=== PATIENT | female | born 1955 | race Caucasian/White ===

== ENCOUNTER 2017-11-05 08:15 | Inpatient (IN) | payer OTHER ==
[2017-11-04 15:43] VITALS: BP 126/83
[2017-11-04 16:25] LABS: BASOPHILS # (AUTO) 0.07 x10^3/uL (0-0.1); BASOPHILS % (AUTO) 1 % (0-1); EOSINOPHILS # (AUTO) 0.11 x10^3/uL (0-0.4); EOSINOPHILS % (AUTO) 1 % (1-7); LYMPHOCYTES # (AUTO) 3.02 x10^3/uL (1-3.4); LYMPHOCYTES % (AUTO) 35 % (22-44); MD NO; MEAN CORPUSCULAR HEMOGLOBIN 34.3 pg (27.0-34.8); MEAN CORPUSCULAR HGB CONC 34.1 g/dL (32.4-35.8); MEAN CORPUSCULAR VOLUME 100.6 fL (80-100); MEAN PLATELET VOLUME 7.8 fL (7.4-10.4); MONOCYTES % (AUTO) 7 % (2-9); NEUTROPHILS # (AUTO) 4.93 x10^3/uL (1.8-6.8); NEUTROPHILS % (AUTO) 57 % (42-75); PLATELET COUNT 245 x10^3/uL (130-400); RED BLOOD COUNT 4.09 x10^6/uL (3.82-5.3); RED CELL DISTRIBUTION WIDTH 13.2 % (9.6-15.2)
[2017-11-04 16:35] LABS: ALBUMIN 3.9 g/dL (3.4-5.0); ANION GAP 8 mmol/L (5-15); CALCIUM 9.8 mg/dL (8.5-10.1); CHLORIDE 107 mmol/L (98-107)
[2017-11-04 16:40] LABS: ALANINE AMINOTRANSFERASE 22 U/L (12-78); ALKALINE PHOSPHATASE 96 U/L (45-117); BILIRUBIN,TOTAL 0.4 mg/dL (0.2-1.0); CREATININE 0.82 mg/dL (0.55-1.02); TOTAL PROTEIN 8.2 g/dL (6.4-8.2)
[~2017-11-05] VITALS: Ht 167.6 cm; Wt 60.5 kg
[~2017-11-05 08:15] MED LIST: BUPIVACAINE/PF-EPI 0.5% 1:200K ONE; NONE PER PT
[2017-11-05] MEDS: LACTATED RINGERS 1,000 ML IV SCH (09:54)
[2017-11-05] MEDS ORDERED: PROPOFOL 10 MG/ML, 20ML ONE (10:03)
[2017-11-05] MEDS ORDERED: MIDAZOLAM 1 MG/ML, 2ML ONE (10:03)
[2017-11-05] MEDS ORDERED: FENTANYL PF 250 MCG/5ML ONE (10:03)
[2017-11-05] MEDS ORDERED: WATER-INJECTION,STERILE 10 ML IV ONE (10:04)
[2017-11-05] MEDS ORDERED: ROCURONIUM 10MG/ML,5ML ONE ×2 (10:04→12:30)
[2017-11-05] MEDS ORDERED: CEFAZOLIN 1,000 MG ONE ×2 (10:04)
[2017-11-05] MEDS ORDERED: GLYCOPYRROLATE 0.4 MG/2 ML, 2ML ONE (10:06)
[2017-11-05] MEDS ORDERED: DEXAMETHASONE 4 MG/ML, 1ML ONE ×2 (10:06)
[2017-11-05] MEDS ORDERED: NEOSTIGMINE 1 MG/ML, 10ML ONE (10:06)
[2017-11-05] MEDS ORDERED: ONDANSETRON 2MG/ML, 2ML ONE ×2 (10:07)
[2017-11-05] MEDS ORDERED: THROMBIN 20,000 UNIT VIAL TP ONE (11:04)
[2017-11-05] MEDS ORDERED: MICROFIBRILLAR COLLAGEN 70X35X1 DRESSING ONE (11:04)
[2017-11-05] MEDS ORDERED: MICROFIBRILLAR COLLAGEN 1 GM TP ONE (11:04)
[2017-11-05] MEDS ORDERED: LABETALOL 5MG/ML, 20ML IV PRN (11:30)
[2017-11-05] MEDS ORDERED: ALBUTEROL SULFATE 2.5 MG/3 ML NPPB PRN (11:30)
[2017-11-05] MEDS ORDERED: MEPERIDINE/PF 25MG/0.5ML IVPush PRN (11:30)
[2017-11-05] MEDS ORDERED: PROMETHAZINE 25 MG/ML, 1ML IM PRN ×2 (11:30)
[2017-11-05] MEDS ORDERED: hydrALAzine 20 MG/ML, 1ML IV PRN (11:30)
[2017-11-05] MEDS ORDERED: ONDANSETRON ODT 8 MG PO PRN (11:30)
[2017-11-05] MEDS ORDERED: MORPHINE SULFATE 4 MG/ML, 1ML IVPush PRN (11:30)
[2017-11-05] MEDS ORDERED: ONDANSETRON 2MG/ML, 2ML IV PRN (11:30)
[2017-11-05] MEDS ORDERED: ACETAMINOPHEN 325 MG TABLET PO PRN (11:30)
[2017-11-05] MEDS ORDERED: PROMETHAZINE 25 MG/ML, 1ML IV PRN (11:30)
[2017-11-05] MEDS ORDERED: OXYcodone 5 MG/5 ML ORAL.SOL UDC PO PRN (11:30)
[2017-11-05] MEDS ORDERED: FENTANYL PF 100 MCG/2ML ONE ×3 (11:36→13:52)
[2017-11-05] MEDS ORDERED: GLYCOPYRROLATE 0.2MG/1ML, 5ML ONE (13:19)
[2017-11-05] MEDS ORDERED: LACTATED RINGERS 1,000 ML IV SCH (13:32)
[2017-11-05] MEDS ORDERED: OXYcodone 5 MG/5 ML ORAL.SOL UDC ONE (13:52)
[2017-11-05] MEDS ORDERED: HYDROmorphone 2 MG/ML, 1ML ONE (13:52)
[2017-11-05] MEDS: FENTANYL PF 100 MCG/2ML IV PRN ×2 (13:55→14:22)
[2017-11-05] MEDS ORDERED: ENALAPRILAT 1.25 MG/ML, 2ML IVPush PRN (14:00)
[2017-11-05] MEDS ORDERED: LORazepam 2 MG/ML, 1ML IVPush PRN (14:00)
[2017-11-05] MEDS ORDERED: hydrALAzine 20 MG/ML, 1ML IVPush PRN (14:00)
[2017-11-05] MEDS: HYDROmorphone 1 MG/ML, 1ML IV PRN ×4 (14:00→14:36)
[2017-11-05] MEDS ORDERED: DIPHENHYDRAMINE 50 MG/ML, 1ML IVPush PRN (14:00)
[2017-11-05] MEDS: FAMOTIDINE 20 MG/2 ML IVPush SCH (15:52)
[2017-11-05] MEDS: morphine SULFATE 10 MG/ML, 1ML IVPush PRN ×5 (16:15→22:35)
[2017-11-05] MEDS: ONDANSETRON 2MG/ML, 2ML IVPush PRN ×2 (16:55→23:10)
[2017-11-05 19:34] VITALS: BP 138/91
[2017-11-05 23:59] VITALS: BP 120/78
[2017-11-06] MEDS: morphine SULFATE 10 MG/ML, 1ML IVPush PRN ×2 (01:56→08:13)
[2017-11-06] MEDS: FAMOTIDINE 20 MG/2 ML IVPush SCH ×2 (03:06→14:37)
[2017-11-06] MEDS: LACTATED RINGERS 1,000 ML IV SCH (03:16)
[2017-11-06 04:00] VITALS: BP 117/74
[2017-11-06 04:45] LABS: BASOPHILS # (AUTO) 0.03 x10^3/uL (0-0.1); BASOPHILS % (AUTO) 0 % (0-1); EOSINOPHILS # (AUTO) 0.05 x10^3/uL (0-0.4); EOSINOPHILS % (AUTO) 1 % (1-7); LYMPHOCYTES # (AUTO) 1.23 x10^3/uL (1-3.4); LYMPHOCYTES % (AUTO) 13 % (22-44); MD NO; MEAN CORPUSCULAR HEMOGLOBIN 34.4 pg (27.0-34.8); MEAN CORPUSCULAR VOLUME 101.1 fL (80-100); MEAN PLATELET VOLUME 8.1 fL (7.4-10.4); MONOCYTES # (AUTO) 0.68 x10^3/uL (0.2-0.8); MONOCYTES % (AUTO) 7 % (2-9); NEUTROPHILS # (AUTO) 7.43 x10^3/uL (1.8-6.8); NEUTROPHILS % (AUTO) 79 % (42-75); PLATELET COUNT 223 x10^3/uL (130-400); RED BLOOD COUNT 3.46 x10^6/uL (3.82-5.3); RED CELL DISTRIBUTION WIDTH 12.7 % (9.6-15.2)
[2017-11-06 04:51] LABS: ANION GAP 7 mmol/L (5-15); CALCIUM 8.8 mg/dL (8.5-10.1); CHLORIDE 106 mmol/L (98-107)
[2017-11-06 04:54] LABS: CREATININE 0.72 mg/dL (0.55-1.02)
[2017-11-06] MEDS: ONDANSETRON 2MG/ML, 2ML IVPush PRN ×3 (05:58→19:48)
[2017-11-06 07:40] VITALS: BP 122/77
[2017-11-06 13:42] VITALS: BP 116/76
[2017-11-06] MEDS ORDERED: ONDANSETRON ODT 4 MG ONE (14:33)
[2017-11-06] MEDS: HYDROcodone/APAP 5/325 TABLET PO PRN ×3 (14:36→19:48)
[2017-11-06] MEDS: ENOXAPARIN 40 MG/0.4 ML SQ SCH (14:37)
[2017-11-06 20:21] VITALS: BP 120/73
[2017-11-07] MEDS: HYDROcodone/APAP 5/325 TABLET PO PRN ×3 (00:01→10:48)
[2017-11-07 00:20] VITALS: BP 106/67
[2017-11-07] MEDS: FAMOTIDINE 20 MG/2 ML IVPush SCH (03:07)
[2017-11-07 04:01] VITALS: BP 119/76
[2017-11-07 06:46] VITALS: BP 123/81
[2017-11-07] MEDS: ENOXAPARIN 40 MG/0.4 ML SQ SCH (09:36)
[2017-11-07] MEDS: ONDANSETRON 2MG/ML, 2ML IVPush PRN (10:47)
[2017-11-07 12:21] VITALS: BP 119/71
[2017-11-07 13:49] VITALS: BP 111/72
[2017-11-07] MEDS ORDERED: HYDR-3240 PO (14:18)
[2017-11-07] MEDS ORDERED: ONDA4TAB7 PO (14:18)
== END 2017-11-07 15:14 | disposition home or self-care (01) | DRG 165 ==
LOC: ORIP 08:15 → 4NOR 15:10 → DCLOUNGE 11-07 15:02
PROVIDERS: ADMIT Thoracic Surgery (Cardiothoracic Vascular Surgery); ATTEND Thoracic Surgery (Cardiothoracic Vascular Surgery)
PROC: 0BBC4ZZ Excision of Right Upper Lung Lobe, Percutaneous Endoscopic Approach (ICD-10-PCS; principal; 2017-11-05 11:30)
PROC: 07B74ZZ Excision of Thorax Lymphatic, Percutaneous Endoscopic Approach (ICD-10-PCS; 2017-11-05 11:30)
DX: C34.11 Malignant neoplasm of upper lobe, right bronchus or lung (principal); Z87.891 Personal history of nicotine dependence
CPT/HCPCS: 36415; J3490; S0028; 71045; 80048; 80053; 85025; 86850; 86900; 86923; 88305; 88309; 88331; 93005; C1729; G0378; J0690; J1100; J1170; J1650; J2250; J2405; J2704; J2710; J3010; J2270; J7120

== ENCOUNTER 2018-05-20 19:48 | Inpatient (IN) | payer OTHER ==
[~2018-05-20] VITALS: Ht 167.6 cm; Wt 63.3 kg
[~2018-05-20 19:48] MED LIST changes: -BUPIVACAINE/PF-EPI 0.5% 1:200K ONE; +HYDR-3240 PO; +ONDA4TAB7 PO
--- NOTE | 2018-05-20 20:00 | NUR ---
PT PLACED ON HEART MONITOR, BP CUFF, PULSE OX. VSS AT THIS TIME. PT A/O X 4, PT REPORTS SLIGHTLY SLURRED SPEECH AND TROUBLE WITH WORD FINDING. PT DENIES ANY PAIN, CONTINUES TO HAVE RUE AND RLE WEAKNESS. LESLIE, PT DENIES VOGEL OR VISION CHANGES. PT ABLE TO TRANSFER FROM AMBULANCE [facility] TO ED [facility] BY STANDING. CALL LIGHT WITHIN REACH, WARM BLANKET PROVIDED.
--- NOTE | 2018-05-20 21:47 | NUR ---
CONTINUE TO AWAIT ORDERS. PT RESTING, NAD. VSS/UPDATED IN COMPUTER.
--- NOTE | 2018-05-20 21:59 | NUR ---
MRI SCREENING FORM COMPLETED, FAXED TO MRI.
[2018-05-20] MEDS ORDERED: SODIUM CHLORIDE FLUSH 10ML SYR IVF ONE (22:00)
--- NOTE | 2018-05-20 22:08 | NUR ---
[facility] IN TO SEE PT.
[2018-05-20] MEDS ORDERED: SODIUM CHLORIDE 0.9% 1,000 ML IV SCH (22:10)
[2018-05-20] MEDS ORDERED: ONDANSETRON 2MG/ML, 2ML IVPush PRN (22:30)
[2018-05-20] MEDS ORDERED: ACETAMINOPHEN 325 MG TABLET PO PRN (22:30)
[2018-05-20] MEDS ORDERED: POLYETHYLENE GLYCOL 17 GM PACKET PO PRN (22:30)
[2018-05-20] MEDS ORDERED: hydrALAzine 20 MG/ML, 1ML IVPush PRN (22:30)
[2018-05-21 00:13] VITALS: BP 150/75
[2018-05-21] MEDS: LEVETIRACETAM 500 MG in SODIUM CHLORIDE 0.9% 100 ML IV SCH ×2 (00:46→12:29)
[2018-05-21] MEDS: DEXAMETHASONE 4 MG/ML, 1ML IV SCH ×4 (03:15→21:13)
[2018-05-21 03:18] VITALS: BP 124/80
[2018-05-21 06:36] VITALS: BP 121/80
[2018-05-21 06:54] LABS: BASOPHILS # (AUTO) 0.02 x10^3/uL (0-0.1); BASOPHILS % (AUTO) 0 % (0-1); EOSINOPHILS % (AUTO) 0 % (1-7); LYMPHOCYTES # (AUTO) 1.02 x10^3/uL (1-3.4); LYMPHOCYTES % (AUTO) 12 % (22-44); MD NO; MEAN CORPUSCULAR HEMOGLOBIN 33.8 pg (27.0-34.8); MEAN CORPUSCULAR HGB CONC 33.9 g/dL (32.4-35.8); MEAN CORPUSCULAR VOLUME 99.7 fL (80-100); MEAN PLATELET VOLUME 8.6 fL (7.4-10.4); MONOCYTES # (AUTO) 0.02 x10^3/uL (0.2-0.8); MONOCYTES % (AUTO) 0 % (2-9); NEUTROPHILS # (AUTO) 7.11 x10^3/uL (1.8-6.8); NEUTROPHILS % (AUTO) 87 % (42-75); PLATELET COUNT 289 x10^3/uL (130-400); RED BLOOD COUNT 4.02 x10^6/uL (3.82-5.3); RED CELL DISTRIBUTION WIDTH 13.2 % (9.6-15.2)
[2018-05-21 07:00] LABS: ALANINE AMINOTRANSFERASE 22 U/L (12-78); ALBUMIN 3.4 g/dL (3.4-5.0); ANION GAP 11 mmol/L (5-15); CALCIUM 9.4 mg/dL (8.5-10.1); CHLORIDE 111 mmol/L (98-107); CREATININE 0.47 mg/dL (0.55-1.02)
[2018-05-21 07:02] LABS: ALKALINE PHOSPHATASE 96 U/L (45-117); BILIRUBIN,TOTAL 0.4 mg/dL (0.2-1.0)
[2018-05-21] MEDS ORDERED: LEVETIRACETAM 100 MG/ML, 5ML IV SCH (09:00)
[2018-05-21] MEDS ORDERED: GADOBUTROL 7.5 MMOL/7.5 ML PFS ONE (14:04)
[2018-05-21] MEDS ORDERED: OMNIPAQUE 350 MG/ML, 100ML BOTTLE ONE (14:50)
[2018-05-21 16:01] VITALS: BP 103/80
[2018-05-21 20:21] VITALS: BP 120/77
[2018-05-21] MEDS ORDERED: SODIUM CHLORIDE 0.9% 1,000 ML IV SCH (22:10)
[2018-05-22 01:03] VITALS: BP 111/74
[2018-05-22] MEDS: LEVETIRACETAM 500 MG in SODIUM CHLORIDE 0.9% 100 ML IV SCH ×2 (01:27→13:08)
[2018-05-22] MEDS: DEXAMETHASONE 4 MG/ML, 1ML IV SCH ×4 (03:10→20:54)
[2018-05-22 05:05] LABS: BASOPHILS # (AUTO) 0.06 x10^3/uL (0-0.1); BASOPHILS % (AUTO) 1 % (0-1); EOSINOPHILS % (AUTO) 0 % (1-7); LYMPHOCYTES # (AUTO) 1.06 x10^3/uL (1-3.4); LYMPHOCYTES % (AUTO) 10 % (22-44); MD NO; MEAN CORPUSCULAR HEMOGLOBIN 34.7 pg (27.0-34.8); MEAN CORPUSCULAR HGB CONC 34.1 g/dL (32.4-35.8); MEAN CORPUSCULAR VOLUME 101.8 fL (80-100); MEAN PLATELET VOLUME 8.9 fL (7.4-10.4); MONOCYTES # (AUTO) 0.44 x10^3/uL (0.2-0.8); MONOCYTES % (AUTO) 4 % (2-9); NEUTROPHILS # (AUTO) 9.41 x10^3/uL (1.8-6.8); NEUTROPHILS % (AUTO) 86 % (42-75); PLATELET COUNT 264 x10^3/uL (130-400); RED BLOOD COUNT 3.53 x10^6/uL (3.82-5.3); RED CELL DISTRIBUTION WIDTH 13.4 % (9.6-15.2)
[2018-05-22 05:14] LABS: ALBUMIN 3.1 g/dL (3.4-5.0); ANION GAP 9 mmol/L (5-15); CALCIUM 8.9 mg/dL (8.5-10.1); CHLORIDE 117 mmol/L (98-107)
[2018-05-22 05:18] LABS: ALANINE AMINOTRANSFERASE 23 U/L (12-78); ALKALINE PHOSPHATASE 80 U/L (45-117); BILIRUBIN,TOTAL 0.4 mg/dL (0.2-1.0); CREATININE 0.59 mg/dL (0.55-1.02); TOTAL PROTEIN 6.1 g/dL (6.4-8.2)
[2018-05-22] MEDS ORDERED: SODIUM CHLORIDE 0.45% 1,000 ML IV SCH (07:00)
[2018-05-22 07:10] VITALS: BP 125/70
[2018-05-22 08:28] VITALS: BP 120/80
[2018-05-22 09:10] LABS: INTERNATIONAL NORMALIZED RATIO 0.96 (0.93-1.1); PROTHROMBIN TIME 10.1 Seconds (9.6-11.5)
[2018-05-22 13:20] VITALS: BP 114/75
[2018-05-22 13:34] LABS: ANION GAP 9 mmol/L (5-15); CALCIUM 9.1 mg/dL (8.5-10.1); CHLORIDE 116 mmol/L (98-107); CREATININE 0.67 mg/dL (0.55-1.02)
[2018-05-22] MEDS ORDERED: POTASSIUM CHLORIDE 20 MEQ TAB.ER.PRT PO ONE (14:00)
[2018-05-22] MEDS: DEXTROSE 5% 1,000 ML IV SCH (15:04)
[2018-05-22 19:45] VITALS: BP 122/81
[2018-05-22 21:02] LABS: ANION GAP 6 mmol/L (5-15); CHLORIDE 119 mmol/L (98-107); CREATININE 0.73 mg/dL (0.55-1.02)
[2018-05-23] MEDS: LEVETIRACETAM 500 MG in SODIUM CHLORIDE 0.9% 100 ML IV SCH ×2 (00:57→12:03)
[2018-05-23 02:11] VITALS: BP 112/82
[2018-05-23] MEDS: DEXAMETHASONE 4 MG/ML, 1ML IV SCH ×4 (02:55→20:02)
[2018-05-23 04:34] LABS: BASOPHILS # (AUTO) 0.03 x10^3/uL (0-0.1); BASOPHILS % (AUTO) 0 % (0-1); EOSINOPHILS % (AUTO) 0 % (1-7); LYMPHOCYTES # (AUTO) 1.12 x10^3/uL (1-3.4); LYMPHOCYTES % (AUTO) 12 % (22-44); MD NO; MEAN CORPUSCULAR HEMOGLOBIN 33.8 pg (27.0-34.8); MEAN CORPUSCULAR HGB CONC 33.5 g/dL (32.4-35.8); MEAN CORPUSCULAR VOLUME 100.9 fL (80-100); MONOCYTES % (AUTO) 3 % (2-9); NEUTROPHILS # (AUTO) 7.65 x10^3/uL (1.8-6.8); NEUTROPHILS % (AUTO) 84 % (42-75); PLATELET COUNT 276 x10^3/uL (130-400); RED BLOOD COUNT 3.71 x10^6/uL (3.82-5.3)
[2018-05-23 04:39] LABS: INTERNATIONAL NORMALIZED RATIO 0.95 (0.93-1.1)
[2018-05-23 04:41] LABS: ALBUMIN 3.3 g/dL (3.4-5.0); ANION GAP 7 mmol/L (5-15); CALCIUM 8.9 mg/dL (8.5-10.1); CHLORIDE 115 mmol/L (98-107)
[2018-05-23 04:44] LABS: ALANINE AMINOTRANSFERASE 22 U/L (12-78); ALKALINE PHOSPHATASE 79 U/L (45-117); BILIRUBIN,TOTAL 0.3 mg/dL (0.2-1.0); CREATININE 0.64 mg/dL (0.55-1.02); TOTAL PROTEIN 6.5 g/dL (6.4-8.2)
[2018-05-23] MEDS ORDERED: MIDAZOLAM 1 MG/ML, 2ML ONE (07:46)
[2018-05-23] MEDS ORDERED: FENTANYL PF 250 MCG/5ML ONE ×2 (07:47→10:34)
[2018-05-23] MEDS ORDERED: NEOSTIGMINE 1 MG/ML, 10ML ONE (07:48)
[2018-05-23] MEDS ORDERED: SUCCINYLCHOLINE 20 MG/ML, 10ML ONE (07:48)
[2018-05-23] MEDS ORDERED: LIDOCAINE-MPF 2% ,5ML ONE ×2 (07:48)
[2018-05-23] MEDS ORDERED: PROPOFOL 10 MG/ML, 20ML ONE (07:48)
[2018-05-23] MEDS ORDERED: ONDANSETRON 2MG/ML, 2ML ONE (07:48)
[2018-05-23] MEDS ORDERED: DEXAMETHASONE 4 MG/ML, 1ML ONE (07:48)
[2018-05-23] MEDS ORDERED: ROCURONIUM 10MG/ML,5ML ONE (07:48)
[2018-05-23] MEDS ORDERED: GLYCOPYRROLATE 0.2MG/1ML, 5ML ONE (07:48)
[2018-05-23] MEDS ORDERED: CEFAZOLIN 1,000 MG ONE (07:48)
[2018-05-23] MEDS ORDERED: GADOBUTROL 7.5 MMOL/7.5 ML PFS ONE (08:00)
[2018-05-23] MEDS ORDERED: MANNITOL PMX 20% 500 ML ONE (08:09)
[2018-05-23] MEDS ORDERED: FUROSEMIDE 20 MG/2 ML ONE (08:10)
[2018-05-23] MEDS ORDERED: BACITRACIN OINT 500U/GM, 15 GM ONE (08:23)
[2018-05-23] MEDS ORDERED: THROMBIN 20,000 UNIT VIAL TP ONE (08:23)
[2018-05-23] MEDS ORDERED: BUPIVACAINE/EPI 0.5% 1:200K ONE (08:23)
[2018-05-23] MEDS ORDERED: BACITRACIN 50,000 UNIT ONE (08:24)
[2018-05-23 09:13] VITALS: BP 149/86
[2018-05-23] MEDS: DEXTROSE 5% 1,000 ML IV SCH (10:10)
[2018-05-23] MEDS ORDERED: BUPIVACAINE/EPI 0.5% 1:200K INFIL ONE (10:57)
[2018-05-23] MEDS ORDERED: SUGAMMADEX 200 MG/2 ML IVPush ONE (10:59)
[2018-05-23] MEDS ORDERED: ACETAMINOPHEN 325 MG TABLET PO PRN (11:30)
[2018-05-23] MEDS ORDERED: PROMETHAZINE 25 MG/ML, 1ML IV PRN (11:30)
[2018-05-23] MEDS ORDERED: OXYcodone 5 MG/5 ML ORAL.SOL UDC PO PRN (11:30)
[2018-05-23] MEDS ORDERED: ONDANSETRON 2MG/ML, 2ML IV PRN (11:30)
[2018-05-23] MEDS ORDERED: LORazepam 2 MG/ML, 1ML IVPush PRN (11:30)
[2018-05-23] MEDS ORDERED: HYDROmorphone 2 MG/ML, 1ML IVPush PRN (11:30)
[2018-05-23] MEDS ORDERED: ONDANSETRON ODT 8 MG PO PRN (11:30)
[2018-05-23] MEDS ORDERED: FENTANYL PF 100 MCG/2ML ONE (11:47)
[2018-05-23] MEDS: FENTANYL PF 100 MCG/2ML IV PRN ×2 (11:50→12:05)
[2018-05-23] MEDS ORDERED: hydrALAzine 20 MG/ML, 1ML ONE (11:56)
[2018-05-23] MEDS ORDERED: hydrALAzine 20 MG/ML, 1ML IV PRN ×2 (12:00→14:00)
[2018-05-23] MEDS ORDERED: morphine SULFATE 10 MG/ML, 1ML IV PRN (14:00)
[2018-05-23] MEDS ORDERED: OXYcodone/APAP 5/325MG TABLET PO PRN (14:00)
[2018-05-23] MEDS ORDERED: BISACODYL 10 MG SUPP PR PRN (14:00)
[2018-05-23] MEDS ORDERED: MAGNESIUM HYDROXIDE 8%, 30ML UDC PO PRN (14:00)
[2018-05-23] MEDS ORDERED: HYDROcodone/APAP 5/325 TABLET PO PRN (14:00)
[2018-05-23] MEDS ORDERED: LABETALOL 5MG/ML, 20ML IV PRN (14:00)
[2018-05-23] MEDS: D5%-0.9% NACL+KCL 20MEQ 1,000 ML IV SCH (14:24)
[2018-05-23] MEDS: CEFUROXIME 1.5 GM in SODIUM CHLORIDE 0.9% 50 ML IVPB SCH (20:02)
[2018-05-24] MEDS: LEVETIRACETAM 500 MG in SODIUM CHLORIDE 0.9% 100 ML IV SCH ×2 (00:17→13:49)
[2018-05-24] MEDS: DEXAMETHASONE 4 MG/ML, 1ML IV SCH (03:00)
[2018-05-24 04:00] VITALS: BP 108/80
[2018-05-24] MEDS: CEFUROXIME 1.5 GM in SODIUM CHLORIDE 0.9% 50 ML IVPB SCH (04:00)
[2018-05-24] MEDS: SENNA/DOCUSATE TABLET PO SCH (09:00)
[2018-05-24 13:15] VITALS: BP 138/78
[2018-05-24] MEDS: D5%-0.9% NACL+KCL 20MEQ 1,000 ML IV SCH ×3 (13:32→19:26)
[2018-05-24 22:39] VITALS: BP 104/72
[2018-05-25] MEDS: LEVETIRACETAM 500 MG in SODIUM CHLORIDE 0.9% 100 ML IV SCH (02:02)
[2018-05-25 02:39] VITALS: BP 112/76
[2018-05-25] MEDS: D5%-0.9% NACL+KCL 20MEQ 1,000 ML IV SCH ×2 (07:30→16:00)
[2018-05-25 07:49] VITALS: BP 122/83
[2018-05-25] MEDS: SENNA/DOCUSATE TABLET PO SCH (11:14)
[2018-05-25 13:07] VITALS: BP 101/70
[2018-05-25 19:29] VITALS: BP 98/64
[2018-05-26 01:02] VITALS: BP 123/81
[2018-05-26 06:52] VITALS: BP 115/60
[2018-05-26] MEDS: SENNA/DOCUSATE TABLET PO SCH (10:24)
[2018-05-26 12:58] VITALS: BP 106/75
== END 2018-05-26 14:52 | disposition home health service (06) | DRG 25 ==
LOC: ED 21:42 → EDIP 21:47 → ED 22:12 → 5SO 23:35 → 3NW 05-21 18:05 → ORIP 05-23 11:31 → CCU 05-23 12:36 → 4NOR 05-24 13:17 → 3NW 05-24 22:27
PROVIDERS: ADMIT Family Medicine; ATTEND Family Medicine
PROC: 03HY32Z Insertion of Monitoring Device into Upper Artery, Percutaneous Approach (ICD-10-PCS; 2018-05-23)
PROC: 00B00ZZ Excision of Brain, Open Approach (ICD-10-PCS; principal; 2018-05-23 09:30)
DX: C79.31 Secondary malignant neoplasm of brain (principal); G93.5 Compression of brain; G93.6 Cerebral edema; E87.0 Hyperosmolality and hypernatremia; G81.91 Hemiplegia, unspecified affecting right dominant side; E27.9 Disorder of adrenal gland, unspecified; E87.6 Hypokalemia; Z85.118 Personal history of other malignant neoplasm of bronchus and lung; Z87.891 Personal history of nicotine dependence; Z90.2 Acquired absence of lung [part of]
CPT/HCPCS: 36415; 99285; J3490; 70450; 70552; 70553; 71260; 72158; 74150; 74177; 80048; 80053; 85025; 85610; 85730; 87081; 88307; A9585; C1713; G0378; J0690; J0697; J1100; J1953; J2250; J2405; J2704; J2710; J3010; J7070; Q9967; A4648; J0330; J0360; J1940; J3480; J7030